=== PATIENT | male | born 2000 | race African-American/Black ===

== ENCOUNTER 2021-04-30 12:11 | Emergency (ER) | payer SELFPAY ==
[~2021-04-30] VITALS: Ht 175.3 cm; Wt 81.8 kg
[2021-04-30 12:25] VITALS: BP 117/53; PULSE 67; TEMP 98.1
[2021-04-30] MEDS ORDERED: ZOFRAN ODT4 MG PO (13:11)
== END 2021-04-30 13:51 | disposition home or self-care (01) ==
LOC: COL.ER 12:11
DX: R11.2 Nausea with vomiting, unspecified (principal)

== ENCOUNTER 2021-04-30 19:45 | Emergency (ER) | payer SELFPAY ==
[~2021-04-30] VITALS: Ht 175.3 cm; Wt 81.8 kg
[~2021-04-30 19:45] MED LIST: ZOFRAN ODT4 MG PO
[2021-04-30 19:51] VITALS: BP 124/62; PULSE 63; TEMP 97.6
[2021-04-30 20:29] LABS: HEMATOCRIT 40.9 % (42.0-52.0); HEMOGLOBIN 14.2 g/dl (13.5-18.0); MEAN CELL VOLUME 94 fl (80.0-100.0); MEAN CORPUSCULAR HEMOGLOBIN 33 pg (27-31); MEAN CORPUSCULAR HGB CONC 35 g/dl (33.0-37.0); MEAN PLATELET VOLUME 10.1 fl (7.4-10.4); PLATELET COUNT 201 K/mm3 (130-400); RED BLOOD COUNT 4.37 M/mm3 (4.20-5.60); REDCELL DISTRIBUTION WIDTH-CV 13.1 % (11.5-14.5)
[2021-04-30 20:45] LABS: BILIRUBIN,TOTAL 0.7 mg/dL (0.2-1.2); CALCIUM 8.3 mg/dL (8.4-10.2); CREATININE, serum 0.84 mg/dL (0.72-1.25); POTASSIUM 3.5 mmol/L (3.5-4.5); TOTAL PROTEIN 6.5 gm/dL (6.2-8.1)
[2021-04-30 21:00] LABS: LYMPHOCYTE 5 % (20.0-51.0); NEUTROPHILS 91 % (42.0-75.2)
== END 2021-04-30 21:10 | disposition home or self-care (01) ==
LOC: COL.ER 19:45
PROVIDERS: Personal Emergency Response Attendant
DX: R11.2 Nausea with vomiting, unspecified (principal); Z20.822 Contact with and (suspected) exposure to COVID-19
CPT/HCPCS: J1630; J7030